=== PATIENT | female | born 1995 | race Caucasian/White ===

== ENCOUNTER 2024-07-23 20:23 | Emergency (ER) | payer MEDICAID, SELFPAY ==
--- NOTE | ~2024-07-23 | CT_ITS ---
CLINICAL HISTORY: new onset seizures CT head without contrast Comparison: None Findings: No intra-axial mass, midline shift, hydrocephalus, or acute hemorrhage. No significant atrophy-like change or white matter disease. The visualized paranasal sinuses and mastoid air cells are normal. The orbits are unremarkable. No skull fracture. IMPRESSION: 1. No acute intracranial findings. This document has been electronically signed by: Akanksha Dan MD on 07/24/2024 05:45:22
--- NOTE | ~2024-07-23 | XR_ITS ---
CLINICAL HISTORY: ETT and NG tube placement 1 view chest x-ray Comparison: None Findings: Right lower lobe consolidation. Endotracheal tube terminates 3.4 cm above the wandy. Enteric tube courses below the diaphragm terminating over the expected location of the proximal gastric body. Normal size heart. No acute fracture. IMPRESSION: 1. Endotracheal and enteric tubes as described 2. Right lower lobe consolidation. This document has been electronically signed by: Akanksha Dan MD on 07/24/2024 05:45:52
--- NOTE | 2024-07-23 20:54 | ED.PSYCH ---
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 billable procedures was approximately 40 minutes including initial evaluation of patient, ordering tests, electrolyte replacement IV; potassium and magnessium, acute seizure management, EKG interpretation, medical consultation, documentation, re-evaluation. Discharge Plan Discharge Clinical Impression: Overdose, Suicidal ideation, Alcohol intoxication, Seizure, Acute hypokalemia, Prolonged QT interval Patient Disposition: Admitted As Inpatient Print Language: Upper Sorbian
[2024-07-23 21:08] VITALS: BP 158/68; PULSE 110; O2SAT 100
[2024-07-23 21:12] VITALS: BP 129/79; PULSE 108; RESP 16; O2SAT 96
[2024-07-23] MEDS: LORazepam 2 MG/ML VIAL IM (21:12)
[2024-07-23] MEDS: diphenhydrAMINE HCL 50 MG/ML VIAL IM (21:12)
[2024-07-23] MEDS: Haloperidol Lactate 5 MG/ML VIAL 10 MG IM (21:12)
[2024-07-23 21:16] VITALS: BP 129/79; PULSE 104; RESP 18; O2SAT 96; BMI 24.8
[2024-07-23 21:27] VITALS: BP 113/65; PULSE 104; RESP 18; O2SAT 96
[2024-07-23 21:42] VITALS: BP 101/57; PULSE 97; RESP 14; TEMP 36.8; O2SAT 95
--- NOTE | 2024-07-23 21:44 | PC.NURSE ---
pt brought in via EMS from home s/p SI attempt with Morphine, lyrica, and omeprazole. On arrival pt became agitated and attempted to hit ED staff. BELTING CUTTER Barcome to bedside- pt placed in 4 pt restraints with security. haldol 10, benadryl 50, ativan 2mg ordered, administered in left and right vastis lateralis.
--- OUTSIDE RECORDS SUMMARY | 2024-07-23 21:47 | XMS_ITS | Encounter Summary ---
Author Organization [facility] Address [address] [place] [phone] Phone Care Team Providers Care Business Quality Assurance Analyst Name Role Phone Jennifer Whitlock DO Primary Care Provider [phone] Encounter Details Date Type Department Care Team (Late st Contact Info) Description 01/06/2017 Conversion Encounter [facility] [place] [address] [place] [address] Social History Tobacco Use Types Packs/Day Years Used Date Smoking Tobacco: Never Comments:Never smoker Comments Unknown Sex and Gender Information Value Date Recorded Sex Assigned at Not on file Legal Sex Female 4:59 PM EDT Gender Identity Not on file Sexual Orientation Not on file documented as of this encounter Plan of Treatment Not on file documented as of this encounter Visit Diagnoses Not on filedocumented in this encounter Care Teams Business Quality Assurance Analyst Relationship Specialty Start Date End Date Jennifer Whitlock DO [address] [place] [address] PCP - General 12/31/16 08/29/22 documented as of this encounter
--- OUTSIDE RECORDS SUMMARY | 2024-07-23 21:47 | XMS_ITS | Encounter Summary ---
Author Organization [facility] Address [address] [place] [address] Phone Care Team Providers Care System Controller Name Role Phone Jennifer Whitlock DO Primary Care Provider [phone] Encounter Details Date Type Department Care Team (Late st Contact Info) Description 06/09/2012 Documentation [facility] [place] Family Medicine [address] [place] [address] Family Medicine, Physician [address] [place], [place] [id number] Social History Tobacco Use Types Packs/Day Years Used Date Smoking Tobacco: Never Assessed Comments Unknown Sex and Gender Information Value Date Recorded Sex Assigned at Not on file Legal Sex Female 4:59 PM EDT Gender Identity Not on file Sexual Orientation Not on file documented as of this encounter Plan of Treatment Not on file documented as of this encounter Visit Diagnoses Not on filedocumented in this encounter Care Teams System Controller Relationship Specialty Start Date End Date Jennifer Whitlock DO [address] [place] [address] PCP - General 12/31/16 08/29/22 documented as of this encounter
--- OUTSIDE RECORDS SUMMARY | 2024-07-23 21:47 | XMS_ITS | Encounter Summary ---
Author Organization [facility] Address [address] [place] [address] Phone Care Team Providers Care Director Digital Advertising Name Role Phone Jennifer Whitlock DO Primary Care Provider [phone] Encounter Details Date Type Department Care Team (Late st Contact Info) Description 01/17/2012 Documentation [facility] [place] Family Medicine [address] [place] [address] Family Medicine, Physician [address] [place], [place] [phone] Social History Tobacco Use Types Packs/Day Years [...] on filedocumented in this encounter Care Teams Director Digital Advertising Relationship Specialty Start Date End Date Jennifer Whitlock DO [address] [place] [address] PCP - General 12/31/16 08/29/22 documented as of this encounter
--- OUTSIDE RECORDS SUMMARY | 2024-07-23 21:47 | XMS_ITS | Encounter Summary ---
Author Organization [facility] Address [address] [place] [address] Phone Care Team Providers Care Silk Screen Painter Name Role Phone Jennifer Whitlock DO Primary Care Provider [phone] Encounter Details Date Type Department Care Team (Late st Contact Info) Description 02/13/2015 Documentation [facility] [place] Family Medicine [address] [place] [address] Family Medicine, Physician [address] [place], [place] [id number] Social History Tobacco Use Types Packs/Day Years [...] on filedocumented in this encounter Care Teams Silk Screen Painter Relationship Specialty Start Date End Date Jennifer Whitlock DO [address] [place] [address] PCP - General 12/31/16 08/29/22 documented as of this encounter
--- OUTSIDE RECORDS SUMMARY | 2024-07-23 21:47 | XMS_ITS | Encounter Summary ---
Author Organization [facility] Address [address] [place] [address] Phone Care Team Providers Care Neurodiagnostic Tech Name Role Phone Jennifer Whitlock DO Primary Care Provider [phone] Encounter Details Date Type Department Care Team (Late st Contact Info) Description 01/15/2010 Documentation [facility] Family Medicine [address] [place] [address] Family Medicine, Physician [address] [place], [place] [phone] Social History Tobacco Use Types Packs/Day Years [...] on filedocumented in this encounter Care Teams Neurodiagnostic Tech Relationship Specialty Start Date End Date Jennifer Whitlock DO [address] [place] [address] PCP - General 12/31/16 08/29/22 documented as of this encounter
[2024-07-23 21:48] LABS: MANUAL DIFF FLAG NO
[2024-07-23 21:49] LABS: Basophils Absolute Auto 0.1 X10*3/uL (0.0-0.2); Basophils Percent Auto 0.7 % (0-2); Eosinophils Absolute Auto 0.1 X10*3/uL (0.0-0.4); Eosinophils Percent Auto 1.5 % (0-4); Hematocrit 37.3 % (37.0-47.0); Hemoglobin 12.6 g/dl (12.0-16.0); Imm Gran Abs Auto 0.01 X10*3/uL (0.00-0.03); Imm Gran Pct Auto 0.1 % (0.0-0.4); Lymphocytes Absolute Auto 2.4 X10*3/uL (1.2-4.9); Mean Corpuscular HGB Conc 33.8 g/dl (31.0-35.0); Mean Corpuscular Hemoglobin 31.2 pg (27.0-33.0); Mean Corpuscular Volume 92.3 fL (80.0-98.0); Mean Platelet Volume 9.3 fL (9.4-12.3); Monocytes Absolute Auto 0.5 X10*3/uL (0.1-1.2); Monocytes Percent Auto 6.9 % (2-11); Neutrophils Absolute Auto 4.1 x10*3/uL (2.0-8.3); Neutrophils Percent Auto 57.8 % (45-73); Platelet Count 179 X10*3/uL (160-400); Red Blood Count 4.04 X10*6/uL (4.20-5.50); Red Cell Distribution Width 12.5 % (11.0-16.0); White Blood Count 7.1 X10*3/uL (4.8-10.8)
[2024-07-23 22:03] LABS: Acetaminophen LAB < 3 mcg/mL (<30); Salicylate < 5.0 mg/dL (15-30)
[2024-07-23 22:04] LABS: Alanine Aminotransferase 20 U/L (0-31); Albumin Level 4.4 g/dL (3.5-5.0); Alkaline Phosphatase 48 U/L (39-117); Anion Gap 18 (12-20); Aspartate Amino Transferase 21 U/L (5-31); Bilirubin Total 0.3 mg/dL (0.0-1.0); Blood Urea Nitrogen 7 mg/dL (9-16); Carbon Dioxide 14 mmol/L (22-29); Chloride 116 mmol/L (96-108); Creatinine Clr Calc Pharmacy 106.8; Estimated Glomerular Filt Rate > 60; Ethanol 241 mg/dL; Glucose Random 90 mg/dL (60-115); Magnesium 2.2 mg/dL (1.6-2.6); Potassium 2.9 mmol/L (3.3-5.1); Sodium 145 mmol/L (135-145); Total Protein 7.2 g/dL (6.5-8.0)
[2024-07-23 22:12] VITALS: BP 94/47; PULSE 94; RESP 12; O2SAT 95
[2024-07-23] MEDS: 0.9 % Sodium Chloride 1,000 ML 999 ML IV (22:16)
[2024-07-23] MEDS: Potassium Chloride/H20 10 MEQ/100 ML PIGGYBACK 100 MEQ IV (22:23)
--- NOTE | 2024-07-23 23:04 | ECG_ITS ---
Test Reason : CHECK QT Blood Pressure : */* mmHG Vent. Rate : 91 BPM Atrial Rate : 91 BPM P-R Int : 160 ms QRS Dur : 88 ms QT Int : 388 ms P-R-T Axes : 68 37 61 degrees QTcB Int : 477 ms Normal sinus rhythm Possible Left atrial enlargement Borderline ECG No previous ECGs available Referred By: Generic ED Physician Electronically Signed By: JACOB GONZALES MD
--- NOTE | 2024-07-23 23:04 | PC.NURSE ---
pt father Rom carty# [phone]
[2024-07-24] VITALS (25 sets, daily range): BP systolic 55–140; BP diastolic 21–98; PULSE 41–128; RESP 11–33; TEMP 31–36.8; O2SAT 96–100
--- NOTE | 2024-07-24 00:45 | PC.NURSE ---
Call placed to poision control. Reshma recommends supportive care and two ekg q2 hrs
[2024-07-24] MEDS: Potassium Chloride/H20 10 MEQ/100 ML PIGGYBACK 100 MEQ IV ×3 (01:21→06:39)
[2024-07-24] MEDS: 0.9 % Sodium Chloride 1,000 ML 999 ML IV (01:27)
--- NOTE | 2024-07-24 01:30 | ECG_ITS ---
Test Reason : CHECK QT Blood Pressure : */* mmHG Vent. Rate : 124 BPM Atrial Rate : 124 BPM P-R Int : 88 ms QRS Dur : 98 ms QT Int : 432 ms P-R-T Axes : * 38 72 degrees QTcB Int : 620 ms Sinus tachycardia with short DC ST & T wave abnormality, consider lateral ischemia Prolonged QT Abnormal ECG When compared with ECG of 23-Jul-2024 23:23, DC interval has decreased QT has lengthened Non-specific change in ST segment in Inferior leads ST now depressed in Anterolateral leads T wave inversion now evident in Anterolateral leads Referred By: Generic ED Physician Electronically Signed By: JACOB GONZALES MD
[2024-07-24 01:36] LABS: HCG Quantitative < 2 mIU/mL
--- NOTE | 2024-07-24 01:45 | PC.NURSE ---
2 witnessed seizures, about 30 mins apart with each lasting 15-30secs long. PT oxygen down to 67% on RA. Placed pt on 2L NC, and o2 improved to 100%. Second seizure pt's oxygen saturations remain WNL. Provider notified and at bedside. new orders placed. side rail up, Seizure pads placed on both sides of beds. Sitter remains at place. place for admission.
[2024-07-24] MEDS: levETIRAcetam in NaCl (iso-os) 1,500 MG/100 ML PIGGYBACK 400 MG IV (01:51)
[2024-07-24] MEDS: Magnesium Sulfate/H2O 2 GM/50 ML PIGGYBACK IV (01:52)
[2024-07-24] MEDS: Sodium Bicarbonate 8.4% 50 MEQ/50 ML SYRINGE IVPUSH ×2 (01:52)
[2024-07-24 01:53] LABS: Venous Blood Gas Refer to POC result
[2024-07-24 01:58] LABS: VBG Base Excess -11.1 mmol/L; VBG HCO3 14 mmol/L (22-26); VBG pCO2 32 mmHg; VBG pH 7.25 (7.32-7.43); VBG pO2 99 mmHg
[2024-07-24 02:09] LABS: Anion Gap 14 (12-20); Blood Urea Nitrogen 6 mg/dL (9-16); Calcium 8.9 mg/dL (8.4-10.2); Carbon Dioxide 15 mmol/L (22-29); Chloride 121 mmol/L (96-108); Creatinine Clr Calc Pharmacy 114.8; Estimated Glomerular Filt Rate > 60; Glucose Random 75 mg/dL (60-115); Potassium 3.4 mmol/L (3.3-5.1); Sodium 147 mmol/L (135-145)
[2024-07-24 02:11] LABS: Lactic Acid 3.1 mmol/L (0.5-2.0)
--- NOTE | 2024-07-24 03:27 | ECG_ITS ---
Test Reason : CHECK QT Blood Pressure : */* mmHG Vent. Rate : 112 BPM Atrial Rate : 112 BPM P-R Int : 146 ms QRS Dur : 100 ms QT Int : 484 ms P-R-T Axes : 68 32 67 degrees QTcB Int : 660 ms Sinus tachycardia Prolonged QT Abnormal ECG When compared with ECG of 24-Jul-2024 01:37, RI interval has increased ST no longer depressed in Anterolateral leads T wave inversion no longer evident in Anterolateral leads Referred By: Generic ED Physician Electronically Signed By: JACOB GONZALES MD
[2024-07-24 03:50] LABS: Reflex Lactate? Lactic Acid Added
--- NOTE | 2024-07-24 04:06 | PC.NURSE ---
Call with poison control concern for sertonin syndrome, or pt had taken more medications then endorsed. plan for 30min-1hr until qtc improvement in the 500s. lab drawn with additional labs to include serum osmolality Pt assessed for clonus/ hyperreflexia- noted to only be in the face. recommendations from PC for tx with benzo for clonus also Recommend ICU placement. At this point decision for possible intubation to protect PTs, airway being made d/t PT unresponsive tp stimuli. PT hypothermic, placed on briar hugger. EKG repeated. labs drawn.
[2024-07-24 04:22] LABS: Hematocrit 34.4 % (37.0-47.0); Hemoglobin 11.6 g/dl (12.0-16.0); Mean Corpuscular HGB Conc 33.7 g/dl (31.0-35.0); Mean Corpuscular Hemoglobin 31.4 pg (27.0-33.0); Mean Platelet Volume 9.3 fL (9.4-12.3); Platelet Count 166 X10*3/uL (160-400); Red Cell Distribution Width 12.7 % (11.0-16.0); White Blood Count 5.2 X10*3/uL (4.8-10.8)
[2024-07-24 04:34] LABS: ~Lactic Acid-LAB USE ONLY 2.5 mmol/L (0.5-2.0)
[2024-07-24 04:39] LABS: Venous Blood Gas Refer to POC result
[2024-07-24 04:41] LABS: VBG Base Excess -1.5 mmol/L; VBG HCO3 23 mmol/L (22-26); VBG pCO2 40 mmHg; VBG pH 7.36 (7.32-7.43); VBG pO2 78 mmHg
[2024-07-24 04:59] LABS: Appearance Urine Clear; Color Urine Yellow; Glucose Urine UA Negative (Negative); Leukocyte Esterase Urine Negative (Negative); Nitrite Urine Negative (Negative); Specific Gravity - Urine <= 1.005 (1.005-1.025); Urine Blood Negative (Negative); Urine Ketones Negative (Negative); Urine Protein Negative (Neg-Trace)
--- NOTE | 2024-07-24 05:04 | PC.NURSE ---
call placed to PT's father renan re: status update and plan for intubation. requested he return to the ED
[2024-07-24] MEDS: Rocuronium Bromide 50 MG/5 ML VIAL IVPUSH (05:13)
[2024-07-24] MEDS: Etomidate 20 MG/10 ML VIAL IVPUSH (05:13)
[2024-07-24 05:15] LABS: Amphetamine Screen Urine POSITIVE (Not Detect); Barbiturates, Urine Not Detected (Not Detect); Benzodiazepines Screen Urine Not Detected (Not Detect); Buprenorphine Scr Not Detected (Not Detect); Cannabinoid Screen Urine POSITIVE (Not Detect); Cocaine Screen Urine Not Detected (Not Detect); Fentanyl, urine Not Detected (Not Detect); Methadone Screen, Urine Not Detected (Not Detect); Opiate Screen Urine POSITIVE (Not Detect); Oxycodone Screen Urine Not Detected (Not Detect); Phencyclidine Screen Urine Not Detected (Not Detect)
[2024-07-24 05:16] LABS: Osmolality, Serum 323 mosm/kg (281-305)
[2024-07-24 05:18] LABS: Alanine Aminotransferase 20 U/L (0-31); Albumin Level 3.9 g/dL (3.5-5.0); Alkaline Phosphatase 40 U/L (39-117); Anion Gap 13 (12-20); Aspartate Amino Transferase 18 U/L (5-31); Bilirubin Total 0.2 mg/dL (0.0-1.0); Blood Urea Nitrogen 6 mg/dL (9-16); Calcium 8.4 mg/dL (8.4-10.2); Carbon Dioxide 20 mmol/L (22-29); Chloride 121 mmol/L (96-108); Creatinine Clr Calc Pharmacy 122.2; Estimated Glomerular Filt Rate > 60; Ethanol 85 mg/dL; Glucose Random 67 mg/dL (60-115); Potassium 3.6 mmol/L (3.3-5.1); Sodium 150 mmol/L (135-145); Total Protein 6.3 g/dL (6.5-8.0)
[2024-07-24] MEDS: Midazolam HCl/NS 50 MG/50 ML PLAST..BAG IVCONT (05:37)
[2024-07-24] MEDS: Norepinephrine Bitartrate/D5W 8 MG/250 ML PLAST..BAG 5.95 MG IVCONT (05:38)
--- NOTE | 2024-07-24 05:40 | PC.NURSE ---
pt pressures low, notified provider. levo drip initiated.
[2024-07-24] MEDS: 0.9 % Sodium Chloride 2,000 ML 999 ML IVCONT (05:41)
--- NOTE | 2024-07-24 05:45 | PC.NURSE ---
Addendum entered by Kayla Austinarnacion 07/24/24 08:20: f 16 peep 5.0 02 40% Original Note: Decision for intubation d/t unresponsiveness, to protect airway. 0513 etomidate, and rocuronium 50mg administered in L wrist iv for pending intubation. hr 106, bp 104/77, 99% on 2L NC, temp 91.0 0528 Pt intubated by23 @ lip 7.5 ET 14og tube Vitals- 104hr, 100%, 18rr, 33et02 placement confirmed via,eto2 auscultation and chest xray
--- NOTE | 2024-07-24 06:00 | PC.NURSE ---
order palced for iv zosyn. this rn attempted to pull med med not available this rn contacted melt house drag operator to obtain med
[2024-07-24 06:18] LABS: Reflex Lactate? 2 Y
[2024-07-24] MEDS: Enoxaparin Sodium 40 MG/0.4 ML SYRINGE SUBCUT (06:42)
[2024-07-24] MEDS: Piperacillin Sodium/Tazobactam 2.25 GM in 0.9 % Sodium Chloride 50 ML IV (06:48)
--- NOTE | 2024-07-24 07:05 | PC.NURSE ---
took report from Kayla cummings
--- NOTE | 2024-07-24 07:31 | PC.NURSE ---
pt is currently intubated with a 7.5 et tube and 23 at the teeth, pt appears to comfortable, pt is currently on a bear hugger at temp sensing ezequiel in place a el bermudez, current temp is 95.9, Norepienephire restarted at 0.05mcg/kg/min do to low bp 86/45, dr shah is aware
[2024-07-24] MEDS: Magnesium Sulfate/D5W 1 GM/100 ML PIGGYBACK IV (07:39)
[2024-07-24 07:41] LABS: ~Lactic Acid-LAB USE ONLY 2.4 mmol/L (0.5-2.0)
--- NOTE | 2024-07-24 07:46 | PC.NURSE ---
pt will have these episodes of twitching like activity that is noticed in the face, pupils diualted about 3mm, reactive to light but sluggish
--- NOTE | 2024-07-24 08:02 | PC.NURSE ---
pt appears to have had a seizure, pt's entire body started to twitch/shake to the point that the warming blanket trembled this occurred for about 5 seconds, dr shah is aware
--- NOTE | 2024-07-24 08:05 | MHC.CARE ---
Pt currently intubated and not medically cleared, pt sent to [facility] [place] ED and assessed by [facility] for IPLOC. Copy of assessment placed on white board in CARE team office. Patient will be referred to CARE team when medically cleared, per Ivory in ED
[2024-07-24] MEDS: levETIRAcetam in NaCl (iso-os) 1,000 MG/100 ML PIGGYBACK 400 MG IV (08:11)
--- NOTE | 2024-07-24 08:30 | PC.NURSE ---
ems at bedside, report given , pt is having multiple seizure like activity that are lasting only a few seconds 5-10
--- NOTE | 2024-07-24 08:47 | ECG_ITS ---
Test Reason : QT CHECK Blood Pressure : */* mmHG Vent. Rate : 112 BPM Atrial Rate : * BPM P-R Int : * ms QRS Dur : 92 ms QT Int : 476 ms P-R-T Axes : * 32 71 degrees QTcB Int : 649 ms Sinus tachycardia Nonspecific ST abnormality Prolonged QT Abnormal ECG When compared with ECG of 24-Jul-2024 03:38, No significant changes seen Referred By: Manuel Haley Electronically Signed By: JACOB GONZALES MD
--- NOTE | 2024-07-24 08:48 | ECG_ITS ---
Test Reason : repeat Blood Pressure : */* mmHG Vent. Rate : 86 BPM Atrial Rate : 86 BPM P-R Int : 190 ms QRS Dur : 96 ms QT Int : 456 ms P-R-T Axes : 81 59 64 degrees QTcB Int : 545 ms Normal sinus rhythm Prolonged QT Abnormal ECG When compared with ECG of 24-Jul-2024 04:16, QT has shortened Referred By: Manuel Haley Electronically Signed By: JACOB GONZALES MD
--- NOTE | 2024-07-24 08:49 | ECG_ITS ---
Test Reason : repeat Blood Pressure : */* mmHG Vent. Rate : 116 BPM Atrial Rate : 116 BPM P-R Int : 142 ms QRS Dur : 92 ms QT Int : 462 ms P-R-T Axes : 79 50 70 degrees QTcB Int : 642 ms Sinus tachycardia Nonspecific ST and T wave abnormality Prolonged QT Abnormal ECG When compared with ECG of 24-Jul-2024 05:33, Nonspecific T wave abnormality now evident in Anterior leads QT has lengthened Referred By: Manuel Haley Electronically Signed By: JACOB GONZALES MD
--- NOTE | 2024-07-24 10:09 | PHA.MEDREC ---
Addendum entered by Pauly Hugo [facility] 07/24/24 10:24: Reviewed by [facility] Original Note: Pharmacy Consult ? Medication Reconciliation Pharmacy has completed the medication reconciliation. Spoke with patients father. He was unsure about what she normally takes at home. Last fill for esomeprazole per [facility] was in Dec 2023 and for omeprazole was in October 2023 per claims. Left off of med list. [facility] also reports patient has not filled lyrica in the last 2 years. Used claims to confirm medications.
[2024-07-24 10:58] LABS: Acetone NONE DETECTED (NONE DETECTED); Analysis performed on: WHOLE BLOOD; Ethyl Alcohol g/dL (%) 0.051 g/dL(%) (NONE DETECTED); Ethyl Alcohol mg/dL 51 mg/dL (NONE DETECTED); Isopropanol NONE DETECTED (NONE DETECTED)
[2024-07-24 11:12] LABS: Methyl Alcohol NONE DETECTED
--- NOTE | 2024-07-25 11:16 | PC.NURSE ---
[place] scale done today for charting purposes for chart discharge. this RN had no contact with the patient
== END 2024-07-25 11:17 | disposition short-term general hospital (02) ==
LOC: HO.ED 07-24 02:19 → HO.EDOVER 07-24 05:58 → HO.ED 07-24 14:01
PROVIDERS: Emergency Medicine Emergency Medical Services; Internal Medicine; Nurse Practitioner Family; Emergency Provider Emergency Medicine
DX: T40.2X2A Poisoning by other opioids, intentional self-harm, initial encounter (principal); T47.1X2A Poisoning by other antacids and anti-gastric-secretion drugs, intentional self-harm, initial encounter; T42.6X2A Poisoning by other antiepileptic and sedative-hypnotic drugs, intentional self-harm, initial encounter; T43.292A Poisoning by other antidepressants, intentional self-harm, initial encounter; R45.1 Restlessness and agitation; R45.6 Violent behavior; Y92.009 Unspecified place in unspecified non-institutional (private) residence as the place of occurrence of the external cause; F10.929 Alcohol use, unspecified with intoxication, unspecified; Y90.4 Blood alcohol level of 80-99 mg/100 ml; R94.31 Abnormal electrocardiogram [ECG] [EKG]; G40.409 Other generalized epilepsy and epileptic syndromes, not intractable, without status epilepticus; E87.20 Acidosis, unspecified; E83.42 Hypomagnesemia; E87.6 Hypokalemia; R68.0 Hypothermia, not associated with low environmental temperature; R00.0 Tachycardia, unspecified; J18.1 Lobar pneumonia, unspecified organism
CPT/HCPCS: 31500; 36415; 70450; 71045; 80048; 80053; 80143; 80179; 80307; 80320; 81003; 82550; 82803; 83605; 83735; 83930; 84702; 85025; 85027; 87040; 93005; 94002; 96361; 96365; 96366; 96367; 96372; 96375; 99285; 99291; 99292; J1165; J1200; J1630; J1650; J1953; J2060; J2251; J2543; J3475; J3480

== ENCOUNTER → 2024-07-23 23:04 | Outpatient (BNV) | payer MEDICAID, SELFPAY | PROVIDERS: Emergency Provider Emergency Medicine; Visit Provider Internal Medicine Cardiovascular Disease | DX: Z13.6 Encounter for screening for cardiovascular disorders (principal) | CPT/HCPCS: 93010 ==

== ENCOUNTER → 2024-07-24 01:30 | Outpatient (BNV) | payer MEDICAID, SELFPAY | PROVIDERS: Emergency Provider Emergency Medicine; Visit Provider Internal Medicine Cardiovascular Disease | DX: I45.6 Pre-excitation syndrome (principal); R00.0 Tachycardia, unspecified; R94.31 Abnormal electrocardiogram [ECG] [EKG] | CPT/HCPCS: 93010 ==

== ENCOUNTER 2024-07-24 03:21 | Outpatient (BNV) | payer MEDICAID, SELFPAY | END 2024-07-24 04:53 | PROVIDERS: Admitting Provider Internal Medicine; Emergency Provider Emergency Medicine; Visit Provider Radiology Diagnostic Radiology | DX: R41.82 Altered mental status, unspecified (principal); T50.901A Poisoning by unspecified drugs, medicaments and biological substances, accidental (unintentional), initial encounter; R45.851 Suicidal ideations | CPT/HCPCS: 70450; 71045 ==

== ENCOUNTER 2024-12-23 20:09 | Emergency (ER) | payer MEDICAID, SELFPAY ==
[2024-12-23 20:14] VITALS: BP 162/117; PULSE 136; O2SAT 98; BMI 24.4
[2024-12-23 20:28] VITALS: BP 106/70; PULSE 113; RESP 16; TEMP 36.6; O2SAT 96
--- NOTE | 2024-12-23 21:13 | ED.ALCOHOL ---
HPI - Alcohol General Chief Complaint: ETOH/Substance Use Stated Complaint: etoh, combative, in police custody Time Seen by Provider: 12/23/24 21:09 Source: EMS, RN notes reviewed and old records reviewed Mode of arrival: EMS Limitations: altered mental status History of Present Illness ED Provider: Dr. Laya Deluna HPI narrative: 29-year-old female with history of depression and alcohol use disorder presenting with altered mental status from home. EMS reports they are originally called for unresponsiveness and alcohol intoxication however, upon arrival the patient became aggressive and combative, striking both EMS and police. She was medicated in the field with Versed and Haldol. Patient is now sedated and unable to provide any history. Related Data Home Medications ?Medication ?Instructions ?Recorded ?Confirmed bupropion HCl 150 mg 24 hr tablet, 150 mg PO DAILY 07/24/24 07/24/24 extended release buspirone 5 mg tablet 5 mg PO TID PRN anxiety 07/24/24 07/24/24 mirtazapine 7.5 mg tablet 7.5 mg PO BEDTIME 07/24/24 07/24/24 Allergies Allergy/AdvReac Type Severity Reaction Status Date / Time amoxicillin Allergy Anaphylaxis Verified 12/23/24 20:23 gabapentin Allergy Anaphylaxis Verified 12/23/24 20:23 naproxen Allergy Anaphylaxis Verified 12/23/24 20:23 Penicillins Allergy Anaphylaxis Verified 12/23/24 20:23 prednisone Allergy Anaphylaxis Verified 12/23/24 20:23 Review of Systems Review of Systems: Yes Unobtainable due to mental status PMFSH Past Medical History Source: unable to obtain, old records reviewed and nursing notes reviewed Social History Social History Unable to assess alcohol history related to: Refusing to respond Alcohol intake: current Alcohol type: beer, wine and hard liquor Smoked in Last 30 Days: Yes Use of substances other than those prescribed or required for medical reasons: No Advance Directives: No Advance Directives Information Provided: No Physical Exam ED Exam Exam: GENERAL: Appears intoxicated, GCS 13, eyes open to voice, slurred speech, no acute distress. SKIN: Normal skin color for ethnicity, warm, dry, no rashes noted. HEENT: Normocephalic, atraumatic, no stridor, posterior oropharynx nonerythematous, dentition intact, EOMI, pupils are pinpoint bilaterally, reactive to light. NECK: Soft, supple, no step-offs, no deformities, no lymphadenopathy. CHEST: Heart regular tachycardia, no murmurs, symmetric chest rise and fall. PULMONARY: Clear to auscultation bilaterally, diminished at the bases, no labored breathing, no wheezes/rhales/rhonchi. ABDOMINAL: Soft, nondistended, positive bowel sounds in all quadrants. : Deferred. MUSCULOSKELETAL: Normal tone, full range of motion, no deformities, no peripheral edema. NEURO: GCS 13, eyes open to voice, slightly slurred speech, CN II through XII intact, equal strength and sensation bilateral upper and lower extremities, no focal neurologic deficits. PSYCHIATRIC: Flat affect, poor eye contact. Vital Signs: Vital Signs - 24 hr 12/23/24 20:28 12/24/24 02:47 12/24/24 06:00 Temperature 97.9 F 97.7 F Pulse Rate 113 H 77 94 Respiratory Rate 16 16 28 H Blood Pressure 106/70 110/72 121/68 Pulse Oximetry 96 97 97 Oxygen Delivery Method Room Air Room Air Room Air BMI result Body Mass Index 24.4 Medical Decision Making Medical Decision Making MDM Narrative: Patient presents today with a chief complaint of altered mental status. Differential diagnosis for AMS is incredibly broad and includes infection, intracranial process such as hemorrhage, stroke or mass, electrolyte abnormality, hypercarbia, hypoxia, toxic encephalopathy, among many others. Broad-based workup was initiated to further evaluate the etiology of patient's symptoms based on the above exam and history. On review of patient's history, she was seen earlier this year after an apparent overdose and ultimately had to be intubated and transferred to an outside facility for ICU admission. At that time she had overdosed on all of her psychiatric drugs, went into status epilepticus and required intubation. She has no evidence of seizure activity today however, we will add on a prolactin level. 6:52 AM 12/24/2024 (Dr. Laya Deluna, D.O.) able to evaluate patient more extensively now that she is awake, alert, speaking in clear full sentences. States that she is ?a weekend drinker and overdid it this weekend?. Admits that she does not really drink during the week. Has never had alcohol withdrawal symptoms before. Admits that she tends to overdo it a thinks that is what happened this weekend. She does not recall any of the events leading up to her coming to the hospital. Would like to have help with her sobriety. We will add on a consult to the recovery team. Patient will be clinically sober at 10:00 a.m. or thereabouts. 09:00 patient evaluated by the recovery team. Patient is not suicidal homicidal. Does not want specific detox at this time. Patient to be discharged home. In stable condition. Differential Diagnosis Differential Diagnoses: The differential diagnosis associated with the presentation includes (As above) Admission/Observation Consideration of admission/observation: Escalation of care including admission/observation considered Lab Data 12/23/24 21:56 12/23/24 21:56 Labs: Lab Results 12/23/24 12/24/24 Range/Units 21:56 02:39 WBC 6.4 (4.8-10.8) X10*3/uL RBC 4.19 L (4.20-5.50) X10*6/uL Hgb 12.9 (12.0-16.0) g/dl Hct 37.5 (37.0-47.0) % MCV 89.5 (80.0-98.0) fL MCH 30.8 (27.0-33.0) pg MCHC 34.4 (31.0-35.0) g/dl RDW 13.3 (11.0-16.0) % Plt Count 261 D (160-400) X10*3/uL MPV 8.8 L (9.4-12.3) fL Immature Gran % (Auto) 0.2 (0.0-0.4) % Neut % (Auto) 57.8 (45-73) % Lymph % (Auto) 34.0 (20-40) % [place] % (Auto) 5.3 (2-11) % Eos % (Auto) 1.9 (0-4) % Baso % (Auto) 0.8 (0-2) % Lymph # (Auto) 2.2 (1.2-4.9) X10*3/uL [place] # (Auto) 0.3 (0.1-1.2) X10*3/uL Eos # (Auto) 0.1 (0.0-0.4) X10*3/uL Baso # (Auto) 0.1 (0.0-0.2) X10*3/uL Abs Immat Gran (auto) 0.01 (0.00-0.03) X10*3/uL Absolute Neuts (auto) 3.7 (2.0-8.3) x10*3/uL Absolute Nucleated RBC 0.000 (0.0-0.012) X10*3/uL Nucleated RBC % (auto) 0.0 (0.0-0.2) /100WBC Sodium 146 H (135-145) mmol/L Potassium 3.7 (3.3-5.1) mmol/L Chloride 113 H (96-108) mmol/L Carbon Dioxide 20 L (22-29) mmol/L Anion Gap 17 (12-20) BUN 11 (9-16) mg/dL Creatinine 0.67 (0.5-1.4) mg/dL Estim Creat Clear Calc 99.5 Estimated GFR > 60 Random Glucose 92 (60-115) mg/dL Calcium 8.8 (8.4-10.2) mg/dL Total Bilirubin 0.3 (0.0-1.0) mg/dL AST 23 (5-31) U/L ALT 16 (0-31) U/L Alkaline Phosphatase 52 (39-117) U/L Total Protein 7.2 (6.5-8.0) g/dL Albumin 4.7 (3.5-5.0) g/dL Urine Color Yellow Urine Appearance Cloudy Urine pH 5.5 (5.0-9.0) Ur Specific [place] 1.020 (1.005-1.025) Urine Protein Trace (Neg-Trace) mg/dL Urine Glucose (UA) Negative (Negative) mg/dL Urine Ketones Negative (Negative) mg/dL Urine Blood Negative (Negative) Urine Nitrite Negative (Negative) Ur Leukocyte Esterase Negative (Negative) Urine Opiates Screen Not Detected (Not Detect) Ur Buprenorphine Scrn Not Detected (Not Detect) ng/mL Ur Oxycodone Screen Not Detected (Not Detect) ng/mL Urine Methadone Screen Not Detected (Not Detect) ng/mL Urine Fentanyl Screen Not Detected (Not Detect) Ur Barbiturates Screen Not Detected (Not Detect) Ur Phencyclidine Scrn Not Detected (Not Detect) Ur Amphetamines Screen Not Detected (Not Detect) U Benzodiazepines Scrn POSITIVE H (Not Detect) Urine Cocaine Screen Not Detected (Not Detect) U Marijuana (THC) Screen Not Detected (Not Detect) Ethyl Alcohol 356 H* mg/dL Discharge Plan Discharge Clinical Impression: Alcoholic intoxication, Alcohol use disorder Patient Disposition: Home, Self-Care Instructions: Abuse of Alcohol (ED) Prescriptions: No Action buspirone 5 mg tablet 5 mg PO TID PRN (Reason: anxiety) bupropion HCl 150 mg tablet extended release 24 hr 150 mg PO DAILY mirtazapine 7.5 mg tablet 7.5 mg PO BEDTIME Referrals: Physician,Unknown J [Primary Care Provider, Medical] Referral Note: Please stop drinking alcohol. Please go to detox. Print Language: Angolan
--- NOTE | 2024-12-23 21:16 | ECG_ITS ---
Test Reason : ETOH Blood Pressure : */* mmHG Vent. Rate : 105 BPM Atrial Rate : 105 BPM P-R Int : 124 ms QRS Dur : 72 ms QT Int : 348 ms P-R-T Axes : 65 49 36 degrees QTcB Int : 459 ms Sinus tachycardia Otherwise normal ECG When compared with ECG of 24-Jul-2024 06:26, ST no longer depressed in Anterolateral leads T wave inversion less evident in Anterior leads Referred By: Laya Deluna Electronically Signed By: ROBERT MORRIS
--- OUTSIDE RECORDS SUMMARY | 2024-12-23 21:47 | XMS_ITS | Clinical Summary ---
Author Organization [facility] Address [address] [place] [address] Care Team Providers Care Crm Analyst Name Role Phone Unavailable Primary Care Provider Unavailabl e Allergies Active Allergy Reactions Criticality Noted Date Comments Gabapentin Nausea And Vomiting Medium 04/08/2023 Naproxen Angioedema,Itching,N ause a And Vomiting,Shortness Of Breath High 04/08/2023 Penicillins Anaphylaxis,Hives High 04/08/2023 Tolerates Unasyn 07/27/24 (same day as allergy documentation) Medications * This document contains information received from the source organization and may not represent a complete record from that organization. levETIRAcetam (KEPPRA) 250 MG tabletIndication s:Seizures (HCC) Take 1 tablet (250 mg total) by mouth 2 (two) times a day. Take Keppra 250 mg twice daily until 08/11/24 and then can stop. 10 tablet 08/06/2024 Active lamoTRIgine (LaMICtal) 25 MG tabletIndication s:Seizures (HCC),Severe episode of recurrent major depressive disorder, without psychotic features (HCC) Take 1 tablet (25 mg total) by mouth nightly. 14 tablet 08/06/2024 Active Active Problems Problem Noted Date Diagnosed Date Nicotine dependence due to vaping tobacco produc t 08/02/2024 GERD (gastroesophageal reflux disease) Fibromyalgia 08/01/2024 Severe episode of recurrent major depressive disorder, without psychotic features 08/01/2024 Seizures 07/24/2024 Migraine 05/27/2024 Family History Medical History Relation Name Comments Anxiety disorder Mother Relation Name Status Comments Mother Social History Tobacco Use Types Packs/Day Years Used Date Smoking Tobacco: Some Days Cigarettes Tobacco Cessation:Ready to Q uit: Not Asked; Counseling Given: Not Answered Alcohol Use Standard Drinks/Week Comments Yes 0 (1 standard drink = 0.6 oz pur e alcohol) [facility] Utilities Answer Date Recorded In the past 12 months has th e electric, gas, oil, or water company threatened to shut off services in your home? Patient unable to answer 07/26/2024 AUDIT-C Answer Date Recorded Q1: How often do you have a drink containing alc ohol? 2-3 times a week 08/01/2024 Q2: How many drinks containi ng alcohol do you have on a typical day when you are drinking? 3 or 4 08/01/2024 Q3: How often do you have si x or more drinks on one occasion? Never 08/01/2024 Overall Financial Resource Strain (CARDIA) Answe r Date Recorded How hard is it for you to pa y for the very basics like food, housing, medical care, and heating? Patient unable to answer 07/25/2024 Hunger Vital Sign Answer Date Recorded Within the past 12 months, y ou worried that your food would run out before you got the money to buy more. Patient unable to answer 07/26/2024 Within the past 12 months, t he food you bought just didn't last and you didn't have money to get more. Patient unable to answer 07/26/2024 PRAPARE - Transportation Answer Date Re corded In the past 12 months, has l ack of transportation kept you from medical appointments or from getting medications? Patient unable to answer 07/26/2024 In the past 12 months, has l ack of transportation kept you from meetings, work, or from getting things needed for daily living? Patient unable to answer 07/26/2024 Housing Stability Vital Sign Answer Joel e Recorded In the last 12 months, was t here a time when you were not able to pay the mortgage or rent on time? Patient unable to answer 07/26/2024 In the past 12 months, how m any times have you moved where you were living? 1 07/26/2024 At any time in the past 12 m [facility], were you homeless or living in a long-term (including now)? Patient unable to answer 07/26/2024 Comments Unknown Sex and Gender Information Value Date Recorded Sex Assigned at Female 07/24/2024 11:07 AM EST Legal Sex Female 5:48 AM EST Gender Identity Female 07/24/2024 11:07 AM EST Sexual Orientation Choose not to disclose 2024 11:07 AM EST Last Filed Vital Signs Vital Sign Reading Time Taken Comments Blood Pressure 123/79 08/06/2024 9:02 AM EDT Pulse 88 08/06/2024 9:02 AM EDT Temperature 36.2 C (97.1 F) 08/06/2024 9:00 AM EDT Respiratory Rate 18 08/06/2024 9:00 AM EDT Oxygen Saturation 100% 08/01/2024 5:01 PM EDT Inhaled Oxygen Concentration - - Weight 59.5 kg (131 lb 2.8 oz) 08/01/2024 5:00 P M EDT Height 152.4 cm (5') 08/01/2024 5:00 PM EDT Body Mass Index 25.62 08/01/2024 5:00 PM EDT Plan of Treatment Health Maintenance Due Date Last Done Comments Hepatitis C Virus Screening 1997 HIV Screening 2010 DTaP/Tdap/Td Vaccines (1 - Tdap) 2016 Hepatitis B Vaccines (1 of 3 - 19+ 3-dose series) 2016 Pneumococcal Vaccine: Pediatric (0-5 Years) and At-Risk Patients (6 to 49 Years) (1 of 2 - PCV) 2016 Pap Smear (Ages 21-65) 2018 Influenza Vaccine 12/21/2024 02/23/2024, , 03/18/2023, Additional history exists COVID-19 Vaccine Completed 02/23/2024, , 05/22/2021, Additional history exists HPV Vaccines Aged Out No longer eligi ble based on patient's age to complete this topic Insurance [facility] Advance Directives * Full Code (Latest Code Status on File) Date Activated Date Inactivated Comments 08/01/2024 5:43 PM Question Answer Comments Decision Thoroughly Discussed with: Patient * Full Code Date Activated Date Inactivated Comments 07/24/2024 2:22 PM 08/01/2024 4:35 PM Healthcare Agents on File Name Relationship Healthcare Agent Relationshi p Communication Ck [place] Parent 4. Next of Kin ( Spouse, Adult Child, Parent, Adult Sibling, Grandparent) Annetta Landrum Parent 4. Next of Kin ( Spouse, Adult Child, Parent, Adult Sibling, Grandparent)
--- OUTSIDE RECORDS SUMMARY | 2024-12-23 21:47 | XMS_ITS | Encounter Summary ---
Author Organization [facility] Address [address] [place] [id number] Phone Care Team Providers Care Life Coach Name Role Phone Jennifer Whitlock DO Primary Care Provider [phone] Encounter Details Date Type Department Care Team (Late st Contact Info) Description 01/15/2010 Documentation EM Family Medicine [address] [place] [address] Family Medicine, Physician [address] [place], [place] [id number] Social History Tobacco Use Types Packs/Day Years [...] on filedocumented in this encounter Care Teams Life Coach Relationship Specialty Start Date End Date Jennifer Whitlock DO [address] [place] [address] PCP - General 12/31/16 08/29/22 documented as of this encounter
[2024-12-23 22:03] LABS: MANUAL DIFF FLAG NO
[2024-12-23 22:04] LABS: Hematocrit 37.5 % (37.0-47.0); Hemoglobin 12.9 g/dl (12.0-16.0); Imm Gran Abs Auto 0.01 X10*3/uL (0.00-0.03); Imm Gran Pct Auto 0.2 % (0.0-0.4); Lymphocytes Absolute Auto 2.2 X10*3/uL (1.2-4.9); Mean Corpuscular HGB Conc 34.4 g/dl (31.0-35.0); Mean Corpuscular Hemoglobin 30.8 pg (27.0-33.0); Mean Corpuscular Volume 89.5 fL (80.0-98.0); NRBC Abs Auto 0.000 X10*3/uL (0.0-0.012); NRBC Pct Auto 0.0 /100WBC (0.0-0.2); Platelet Count 261 X10*3/uL (160-400); Red Blood Count 4.19 X10*6/uL (4.20-5.50); White Blood Count 6.4 X10*3/uL (4.8-10.8)
[2024-12-23 22:21] LABS: Alanine Aminotransferase 16 U/L (0-31); Albumin Level 4.7 g/dL (3.5-5.0); Alkaline Phosphatase 52 U/L (39-117); Anion Gap 17 (12-20); Aspartate Amino Transferase 23 U/L (5-31); Blood Urea Nitrogen 11 mg/dL (9-16); Calcium 8.8 mg/dL (8.4-10.2); Carbon Dioxide 20 mmol/L (22-29); Chloride 113 mmol/L (96-108); Creatinine Clr Calc Pharmacy 99.5; Estimated Glomerular Filt Rate > 60; Potassium 3.7 mmol/L (3.3-5.1); Sodium 146 mmol/L (135-145); Total Protein 7.2 g/dL (6.5-8.0)
[2024-12-24 02:47] VITALS: BP 110/72; PULSE 77; RESP 16; TEMP 36.5; O2SAT 97
[2024-12-24 02:47] LABS: Appearance Urine Cloudy; Glucose Urine UA Negative (Negative); PH 5.5 (5.0-9.0); Specific Gravity - Urine 1.020 (1.005-1.025)
[2024-12-24 02:57] LABS: Cannabinoid Screen Urine Not Detected (Not Detect)
[2024-12-24 06:00] VITALS: BP 121/68; PULSE 94; RESP 28; O2SAT 97
[2024-12-24 09:00] VITALS: BP 120/66; PULSE 82; RESP 16; TEMP 36.7; O2SAT 100
--- NOTE | 2024-12-24 09:11 | PC.NURSE ---
this nurse took over patient care from [facility], patient currently a&ox3, vitals stable, rr equal/non labored, provider to discharge patient to home, pt given belongings and will discharge.
[2024-12-24 09:13] VITALS: BP 120/66; PULSE 82; RESP 16; TEMP 36.7; O2SAT 100
== END 2024-12-24 09:15 | disposition home or self-care (01) ==
PROVIDERS: Emergency Provider Emergency Medicine
DX: F10.129 Alcohol abuse with intoxication, unspecified (principal); Y90.8 Blood alcohol level of 240 mg/100 ml or more; R41.82 Altered mental status, unspecified; F91.9 Conduct disorder, unspecified
CPT/HCPCS: 36415; 80053; 80307; 81003; 84146; 85025; 93005; 99285; S9485

== ENCOUNTER → 2024-12-23 21:16 | Outpatient (BNV) | payer MEDICAID, SELFPAY | PROVIDERS: Emergency Provider Emergency Medicine; Visit Provider Internal Medicine | DX: R00.0 Tachycardia, unspecified (principal) | CPT/HCPCS: 93010 ==